=== PATIENT | male | born 1985 | race African-American/Black ===

== ENCOUNTER 2023-01-24 13:20 | Emergency (ER) | payer SELFPAY ==
[~2023-01-24] VITALS: Ht 167.6 cm; Wt 65.7 kg
[~2023-01-24 13:20] MED LIST: LORTAB 7.5-3251 TAB PO
[2023-01-24 13:39] VITALS: BP 121/84
[2023-01-24 13:45] VITALS: BP 115/84
[2023-01-24 14:00] VITALS: BP 120/87
[2023-01-24] MEDS ORDERED: BACTROBAN TOP (14:06)
[2023-01-24] MEDS ORDERED: VIBRAMYCIN100 M2 PO (14:06)
[2023-01-24 14:16] VITALS: BP 119/74
[2023-01-24 14:31] VITALS: BP 104/71
[2023-01-24 14:40] VITALS: BP 104/71
[2023-01-27] MEDS ORDERED: BACTROBAN TOP (21:16)
== END 2023-01-24 14:41 | disposition home or self-care (01) | DRG 603 ==
LOC: ED 13:20
DX: L03.115 Cellulitis of right lower limb (principal); F17.200 Nicotine dependence, unspecified, uncomplicated